=== PATIENT | female | born 1960 | race Caucasian/White ===

== ENCOUNTER 2022-01-09 23:31 | Observation (INO) | payer BC, SELFPAY ==
[2022-01-09 23:37] VITALS: BP 155/116; PULSE 146; RESP 20; TEMP 37.1; O2SAT 95
[2022-01-09 23:46] VITALS: PULSE 147
[2022-01-09] MEDS: SODIUM CHLORIDE 0.9% IV 1,000 ML 999 ML IV CONT (23:50)
--- NOTE | 2022-01-09 23:50 | ECG_ITS ---
Measurements Intervals [facility] Rate: 138 P: 114 ND: 143 QRS: -18 QRSD: 98 T: 54 QT: 291 QTc: 441 Interpretive Statements SINUS OR ECTOPIC ATRIAL TACHYCARDIA INCOMPLETE RIGHT BUNDLE BRANCH BLOCK DELAYED PRECORDIAL R/S TRANSITION NONSPECIFIC ST & T-WAVE ABNORMALITY- ANTEROLAT/HIGH LAT LEADS BASELINE ARTIFACT- II, III, AVF, V5-V6 ABNORMAL ECG NO PREVIOUS ECG AVAILABLE FOR COMPARISON Electronically Signed On 01-10-2022 7:05:04 CDT by Mathieu Peralta D.O.
[2022-01-09 23:51] VITALS: PULSE 90; RESP 21; O2SAT 95
--- NOTE | 2022-01-09 23:55 | PC.NURSE ---
Talked to Dayana in lab at 23:55 to add on D Dimer
[2022-01-10] VITALS (50 sets, daily range): BP systolic 100–154; BP diastolic 55–97; PULSE 59–134; RESP 10–25; O2SAT 94–98
--- NOTE | 2022-01-10 | ECG_ITS ---
Measurements Intervals [place] Rate: 121 P: CT: 0 QRS: -7 QRSD: 93 T: 49 QT: 317 QTc: 451 Interpretive Statements ATRIAL FIBRILLATION WITH RAPID VENTRICULAR RESPONSE INCOMPLETE RIGHT BUNDLE BRANCH BLOCK ABNORMAL ECG COMPARED TO ECG 01/09/2022 23:42:51 ATRIAL FIBRILLATION NOW PRESENT Electronically Signed On 01-10-2022 7:05:38 CDT by Mathieu Peralta D.O.
--- NOTE | 2022-01-10 | ECHO_ITS ---
Patient Info Name: Salima Soriano Age: 61 years : 1960 Gender: Female Ht: 64 in Wt: 198 lbs BSA: 2.05 m2 HR: 59 bpm BP: 118 / 68 mmHg Heart Rhythm: Sinus Rhythm Technical Quality: Fair Exam Date: 01/10/2022 10:05 AM Exam Location: [facility] Patient Status: Outpatient Admit Date: 01/10/2022 Staff Ordering Physician: Kathya Ford MD Patient Centered Care Specialist: Kya Iraheta RDCS Attending Provider: Kathya Ford MD Referring Physician: Liliana PENNINGTON; Exam Type: CA echo doppler color flow Study Info Indications - FATIGUE/A FIB Complete two-dimensional, color flow and Doppler transthoracic echocardiogram is performed. Summary 1. Complete two-dimensional, color flow and Doppler transthoracic echocardiogram is performed. 2. Left ventricular chamber dimension is normal. 3. Left ventricular systolic function is normal, estimated at 65-70%. 4. The left ventricular diastolic function is grade I diastolic dysfunction. 5. E/e' 24 is significantly elevated. 6. There is mild aortic valve regurgitation. 7. There is mild mitral valve regurgitation. 8. There is trace tricuspid valve regurgitation. 9. No pulmonary hypertension, estimated pulmonary arterial systolic pressure is 35 mmHg. Left Ventricle E/e' 24 is significantly elevated. Left ventricular chamber dimension is normal. Left ventricular systolic function is normal, estimated at 65-70%. The left ventricular diastolic function is grade I diastolic dysfunction. Right Ventricle Right ventricular systolic function is normal and with normal TAPSE 2.2 cm. Right ventricular chamber dimension is normal. Left Atria Left atrial chamber dimension is normal. Right Atria Right atrial chamber dimension is normal. Aortic Valve The aortic valve is trileaflet. There is no aortic valve stenosis. There is mild aortic valve regurgitation. Pulmonic Valve There is no pulmonic regurgitation. Mitral Valve There is no mitral valve stenosis. There is mild mitral valve regurgitation. Tricuspid Valve There is trace tricuspid valve regurgitation. No pulmonary hypertension, estimated pulmonary arterial systolic pressure is 35 mmHg. Pericardium/Pleural There is no pericardial effusion. Inferior Vena Cava Normal inferior vena cava with >50% collapse upon inspiration consistent with normal right atrial pressure, 5 mmHg. Aorta The aortic root size at the sinus of Valsalva is normal. Left Ventricular Outflow Tract Name Value Normal LVOT 2D LVOT Diameter 2.0 cm LVOT Doppler LVOT Peak Gradient 6 mmHg LVOT Mean Gradient 3 mmHg LVOT VTI 27 cm LVOT VTI/AV VTI Ratio 0.8 LVOT Stroke Volume 85 ml LVOT CO 5.0 l/min LVOT CI 2.4 l/min/m2 Pulmonic Valve Name Value Normal
[2022-01-10 00:06] LABS: Basophils Absolute Auto 0.1 K/mm3 (0.0-0.1); Basophils Percent Auto 0.7 % (0.2-1.2); Eosinophils Absolute Auto 0.6 K/mm3 (0-0.3); Eosinophils Percent Auto 4.3 % (0-4.4); Hematocrit 48.9 % (37.0-47.0); Hemoglobin 16.4 g/dL (12.0-15.0); Immature Granulocyte Absolute 0.05 K/mm3 (0.00-0.031); Immature Granulocyte Percent A 0.4 % (0-0.5); Lymphocytes Percent Auto 26.1 % (18.3-44.2); Mean Corpuscular HGB Conc 33.5 g/dl (32-36); Mean Corpuscular Hemoglobin 30.6 pg (26-34); Mean Corpuscular Volume 91.2 fl (80-100); Mean Platelet Volume 10.3 fl (7.4-10.4); Monocytes Absolute Auto 1.3 K/mm3 (0.1-0.6); Monocytes Percent Auto 9.4 % (2.6-8.5); Neutrophils Absolute Auto 7.9 K/mm3 (1.3-6.7); Neutrophils Percent Auto 59.1 % (45.5-73.1); Platelet Count Result 393 k/mm3 (150-375); Red Blood Count 5.36 M/mm3 (4.2-5.4); Red Cell Distribution Width 13.3 % (11.5-14.5); White Blood Count 13.4 K/mm3 (4.5-10.0)
[2022-01-10] MEDS: dilTIAZem HCl INJ 25 MG/5 ML VIAL 10 MG IV PUSH (00:14)
[2022-01-10 00:17] LABS: Prothrombin Time 12.4 Seconds (11.1-14.7)
[2022-01-10 00:18] LABS: Partial Thromboplastin Time 29.2 SECONDS (22.3-36.8)
[2022-01-10 00:44] LABS: Alanine Aminotransferase 36 U/L (6-35); Albumin Level 4.8 g/dL (3.5-5.1); Alkaline Phosphatase 103 U/L (38-126); Anion Gap 16 mmol/L (8-16); Aspartate Amino Transferase 35 U/L (14-36); Bilirubin,Total 0.3 mg/dL (0.2-1.3); Blood Urea Nitrogen 14 mg/dL (7-17); Calcium 9.3 mg/dL (8.4-10.2); Carbon Dioxide 24 mmol/L (22-30); Chloride 100 mmol/L (98-107); Estimated CRCL calculation 81 ml/min; Estimated Glomerular Filt Rate > 60; Glucose 80 mg/dL (65-110); Potassium 3.5 mmol/L (3.4-5.0); Sodium 140 mmol/L (137-145)
[2022-01-10] MEDS: dilTIAZem 100 MG/100 ML 100 MG/100 ML BAG IV CONT (00:46)
--- NOTE | 2022-01-10 01:05 | ED.ARRPALP ---
HPI - Arrhythmia/Palpitations General Chief Complaint: Arrhythmia/Palpitations Stated Complaint: Irregular HR Time Seen by Provider: 01/09/22 23:43 History of Present Illness HPI narrative: 61-year-old female history of possible paroxysmal atrial fibrillation presented to the emergency department for evaluation of rapid heart rate since about 930 this evening. Patient states she felt that she slipped into a rapid heart rate but waited approximately 2 hours to come and because she expected to resolve. Patient states she did have issues with this previously and had a Holter monitor which showed no acute abnormalities. Patient states the only change today was that she did have some fast food this evening and did have some ice tea. Patient states this is not unusual amount of caffeine for her. Review of Systems Review of Systems: CONSTITUTIONAL: Denies fever, chills, or sweats. EYES: Denies visual changes, redness, or discharge. ENT: Denies rhinorrhea, congestion, sore throat, or otalgia. CARDIOVASCULAR: See HPI RESPIRATORY: Denies cough or dyspnea. GASTROINTESTINAL: Denies abdominal pain, nausea, vomiting, or diarrhea. GENITOURINARY: Denies dysuria or hematuria. SKIN: Denies rash or itching. MUSCULOSKELETAL: Denies back pain, joint pain, or myalgia. NEUROLOGIC: Denies headache, numbness, or weakness. Exam Narrative: APPEARANCE: Well appearing, no pain, no distress, well-nourished. HEAD: normocephalic, atraumatic. EYES: PERRLA/EOMI, conjunctivae clear. NOSE: Normal no drainage EARS:TMS clear with good light reflex. THROAT: Pharynx clear, no exudate. NECK: Supple. No adenopathy, no masses. RESPIRATORY: Airway patent, respirations nonlabored. Clear to auscultation bilaterally, no rales, rhonchi, wheezing. CARDIOVASCULAR: A. fib with RVR ABDOMINAL: Soft, nontender, nondistended, normal bowel sounds MUSCULOSKELETAL: Moves all extremities. Strength/ROM intact, No edema, No calf tenderness. NEURO: Alert. Cranial nerves II through XII intact. Grossly intact SKIN: Warm, dry. Normal Color Course Course Emergency Course: Patient's EKG was A. fib with RVR. Patient was treated with Cardizem and did have an improvement of her heart rate. Patient was also started on a Cardizem drip. After the Cardizem drip patient's heart rate was controlled. Patient's D-dimer was mildly elevated but age-adjusted this is still within the normal limit. Case was discussed with the hospitalist and patient was accepted to the IMU. Vital Signs Vital signs: Vital Signs Temperature 98.7 F 01/09/22 23:37 Pulse Rate 146 H 01/09/22 23:37 Respiratory Rate 20 01/09/22 23:37 Blood Pressure 155/116 H 01/09/22 23:37 Pulse Oximetry 95 01/09/22 23:37 Oxygen Delivery Room Air 01/09/22 23:37 Temperature 98.7 F 01/09/22 23:37 Pulse Rate 114 H 01/10/22 00:46 Respiratory Rate 23 H 01/10/22 00:17 Blood Pressure 130/80 01/10/22 00:46 Pulse Oximetry 95 01/10/22 00:17 Oxygen Delivery Room Air 01/09/22 23:37 MDM - Arrhythmia/Palpitations Lab Data Attestation: I reviewed the patient's lab results. Result diagrams: 01/09/22 23:48 01/09/22 23:48 Labs: Lab Results 01/09/22 01/09/22 01/09/22 Range/Units 23:48 23:48 23:48 WBC 13.4 H (4.5-10.0) K/mm3 RBC 5.36 (4.2-5.4) M/mm3 Hgb 16.4 H (12.0-15.0) g/dL Hct 48.9 H (37.0-47.0) % MCV 91.2 (80-100) fl MCH 30.6 (26-34) pg MCHC 33.5 (32-36) g/dl RDW 13.3 (11.5-14.5) % Plt Count 393 H (150-375) k/mm3 MPV 10.3 (7.4-10.4) fl Immature Gran % (Auto) 0.4 (0-0.5) % Neut % (Auto) 59.1 (45.5-73.1) % Lymph % (Auto) 26.1 (18.3-44.2) % Maury % (Auto) 9.4 H (2.6-8.5) % Eos % (Auto) 4.3 (0-4.4) % Baso % (Auto) 0.7 (0.2-1.2) % Lymph # (Auto) 3.50 H (0.9-3.2) K/mm3 Maury # (Auto) 1.3 H (0.1-0.6) K/mm3 Eos # (Auto) 0.6 H (0-0.3) K/mm3 Baso # (Auto) 0.1 (0.0-0.1) K/mm3 Abs
--- NOTE | 2022-01-10 01:07 | PM.IMHP ---
H&P: HPI History of Present Illness Date/Time: 01/10/22 01:07 Meds Vital Signs Vital Signs - 24 hr 01/09/22 23:37 01/09/22 23:46 01/09/22 23:51 Temperature 98.7 F Pulse Rate 146 H 147 H 90 Respiratory Rate 20 21 H Blood Pressure 155/116 H Pulse Oximetry 95 95 Oxygen Delivery Room Air 01/10/22 00:46 01/10/22 00:00 01/10/22 00:16 Temperature Pulse Rate 114 H 134 H 97 Respiratory Rate 25 H 23 H Blood Pressure 130/80 132/97 H Pulse Oximetry 94 Oxygen Delivery 01/10/22 00:17 Temperature Pulse Rate 102 H Respiratory Rate 23 H Blood Pressure Pulse Oximetry 95 Oxygen Delivery H&P: Results Labs Labs: Short CBC 01/09/22 Range/Units 23:48 WBC 13.4 H (4.5-10.0) K/mm3 Hgb 16.4 H (12.0-15.0) g/dL Hct 48.9 H (37.0-47.0) % Plt Count 393 H (150-375) k/mm3 BMP 01/09/22 23:48 Sodium 140 Potassium 3.5 Chloride 100 Carbon Dioxide 24 BUN 14 Creatinine 0.70 Glucose 80 Calcium 9.3 Liver Function 01/09/22 Range/Units 23:48 Total Bilirubin 0.3 (0.2-1.3) mg/dL AST 35 (14-36) U/L ALT 36 H (6-35) U/L Alkaline Phosphatase 103 (38-126) U/L Albumin 4.8 (3.5-5.1) g/dL
--- NOTE | 2022-01-10 01:45 | ECG_ITS ---
Measurements Intervals [place] Rate: 68 P: 67 IN: 255 QRS: -1 QRSD: 98 T: 19 QT: 400 QTc: 426 Interpretive Statements SINUS RHYTHM WITH FIRST DEGREE AV BLOCK INCOMPLETE RIGHT BUNDLE BRANCH BLOCK ABNORMAL ECG COMPARED TO ECG 01/10/2022 00:08:39 SINUS RHYTHM NOW PRESENT FIRST DEGREE AV BLOCK NOW PRESENT Electronically Signed On 01-10-2022 7:06:10 CDT by Mathieu Peralta D.O.
[2022-01-10 02:17] LABS: SARS-CoV-2 RNA PCR Negative
[2022-01-10] MEDS: METOPROLOL SUCCINATE EXT REL 50 MG TABCR PO (02:46)
--- NOTE | 2022-01-10 04:08 | PM.IMHP ---
H&P: HPI History of Present Illness Date/Time: 01/10/22 04:08 Chief Complaint: jaw pain Narrative: This is a 61-year-old female with past medical history significant for hypertension, COPD/ emphysema, patient Prieb sense to the emergency room due to neck angio pain that started in the evening along with fluttering sensation of her chest and lightheadedness no syncope or presyncope, no cough, no sputum production, no fevers, no rigors no chills, has had some ankle swelling, feeling very fatigued over the course of the last 2 weeks denies any chest pain, no PND, no orthopnea. in emergency room patient was found to have atrial fibrillation with rapid ventricular response placed on Cardizem drip later on patient converted to sinus rhythm she was given 50 mg of metoprolol extended release p.o. and was given the option to go home however she is still want to stay for observation. Preliminary workup was significant for WBC 92004, TSH of 5.650, hemoglobin of 16 hematocrit of 48. Patient states that she has been in her usual state of health up until this point. Review of Systems Review of Systems: Jaw pain, fluttering of the chest, fatigue. Constitutional: Constitutional: Denies chills, Reports fatigue, Denies fever(s), Denies malaise, Denies night sweats, Denies poor appetite and Denies weakness Eyes: Eyes: Denies change in vision ENT: Denies dysphagia, Denies vertigo, Denies dizziness and Denies odynophagia Cardiovascular: Cardiovascular: Reports palpitations, Denies orthopnea and Denies paroxysmal nocturnal dyspnea Respiratory: Respiratory: Denies cough, Denies pain on inspiration and Denies dyspnea on exertion Gastrointestinal: Gastrointestinal: Denies abdominal pain, Denies dyspepsia, Denies heartburn, Denies diarrhea, Denies nausea and Denies vomiting Genitourinary: Genitourinary: Denies dysuria Musculoskeletal: Musculoskeletal: Denies myalgias and Denies muscle weakness Integumentary/Breasts: Skin/Breast: Denies rash Neurologic: Denies vertigo, Denies dizziness, Denies focal weakness and Denies Sensory deficit (Neuro) Psychiatric: Psychiatric: Reports no additional psychiatric complaints and Reports as per HPI Endocrine: Endocrine: Denies cold intolerance, Denies flushing, Denies heat intolerance, Denies polyphagia, Denies polydipsia and Denies palpitations Hematologic/Lymphatic: Hematologic/Lymphatic: Reports no additional hematologic/lymphatic complaints and Reports as per HPI Allergic/Immunologic: Allergic/Immunologic: Reports no additional allergic/immunologic complaints and Reports as per HPI Meds Vital Signs Vital Signs - 24 hr 01/09/22 23:37 01/09/22 23:46 01/09/22 23:51 Temperature 98.7 F Pulse Rate 146 H 147 H 90 Respiratory Rate 20 21 H Blood Pressure 155/116 H Pulse Oximetry 95 95 Oxygen Delivery Room Air 01/10/22 00:46 01/10/22 00:00 01/10/22 00:16 Temperature Pulse Rate 114 H 134 H 97 Respiratory Rate 25 H 23 H Blood Pressure 130/80 132/97 H Pulse Oximetry 94 Oxygen Delivery 01/10/22 00:17 01/10/22 00:30 01/10/22 00:31 Temperature Pulse Rate 102 H 109 H 109 H Respiratory Rate 23 H 22 H 24 H Blood Pressure 154/84 H Pulse Oximetry 95 95 96 Oxygen Delivery 01/10/22 00:45 01/10/22 01:00 01/10/22 01:19 Temperature Pulse Rate 116 H 118 H 106 H Respiratory Rate 19 21 H Blood Pressure Pulse Oximetry 95 97 96 Oxygen Delivery 01/10/22 01:31 01/10/22 01:33 01/10/22 01:45 Temperature Pulse Rate 105 H 98 71 Respiratory Rate 15 22 H 24 H Blood Pressure Pulse Oximetry 97 95 95 Oxygen Delivery 01/10/22 01:46 01/10/22 02:00 01/10/22 02:01 Temperature Pulse Rate 70 71 73 Respiratory Rate 25 H 22 H 19 Blood Pressure 137/82 115/72 Pulse Oximetry 95 94 96 Oxygen Delivery 01/10/22 02:15 01/10/22 02:16 01/10/22 02:46 Temperature Pulse Rate 70 73 73 Respiratory Rate 24 H 23 H Blood Pressure 122/69 Pulse Oximetry 96
--- NOTE | 2022-01-10 08:15 | PC.NURSE ---
Spoke to hospitalist about pt wished to be discharged. Dr. Ricardo said someone would need to come and evaluate her for discharge. He said provider should be to see her around 12:00. Pt informed. Pt understands course of treatment.
--- NOTE | 2022-01-10 09:21 | PM.DS ---
DS: Admitting Diagnosis Discharge Date 01/10/22921 Admitting Diagnosis Atrial fibrillation RVR? History of hypothyroidism?Abnormal TSH DS: Discharge Diagnosis Discharge Diagnosis (1) Atrial fibrillation: Qualifiers: Atrial fibrillation type: paroxysmal Qualified Code(s): I48.0 - Paroxysmal atrial fibrillation Code(s): I48.91 - Unspecified atrial fibrillation Status: Acute (2) Abnormal TSH: Code(s): R79.89 - Other specified abnormal findings of blood chemistry Status: Acute DS: Summary Hospital Course Reason for hospitalization: jaw pain Hospital Course: Salima Soriano is a 61-year-old female with hypertension, COPD/ emphysema, hyperlipidemia and hypothyroidism. She presented to the emergency room due to neck and jaw pain. The pain started in the evening and as associated with a fluttering sensation in her chest and lightheadedness. She denied syncope or presyncope, no cough, no sputum, no fevers, no rigors or chills. She does endorse some ankle swelling and feeling very fatigued over the course of the last 2 weeks. She denies chest pain, PND, or orthopnea. In the emergency room, patient was found to have atrial fibrillation with rapid ventricular response 147 bpm. She was treated with bolus diltiazem 10 mg IV x1 and started on a diltiazem drip. She converted to sinus rhythm on 01/10/22 at 0145. Cardizem was stopped and she was given 50 mg of metoprolol extended release p.o.x1. She was given the option to go home however she was concerned about leaving and wanted to pursue further evaluation by Cardiology. She does endorse seeing a Core Sticker through [facility]. She had an event monitor recently that did not show arrhythmia. Her preliminary workup? was significant for WBC 11018, TSH of 5.650, hemoglobin of 16 and hematocrit of 48.? Patient states that she has been in her usual state of health up until this point. The patient was held in the emergency room until a telemetry bed was available. She did report feeling well at 0900 and decided to go home to follow up with her Core Sticker. She was educated extensively regarding medications and side effects. CHADSVASc score was 2, low moderate risk for stroke. She was treated with therapeutic lovenox in the ED and started on Eliquis 5 mg BID at discharge. The patient was counseled on the risks and benefits of anticoagulation ans was agreeable to starting medication. She was continued on Metoprolol XL 50 mg daily. She remained in sinus rhythm at discharge. Her TSH was noted to be elevated 5.6, however, free T4 was not obtained during her hospital stay, therefore no adjustments were made in her medications. She was counseled to follow up with her PCP. Echocardiogram was obtained and showed normal LV systolic function, EF 65%, mild AR, mild MR, and trace TR. no pulmonary hypertension was noted. Status at Discharge Cognitive/behavioral status at discharge: Alert and oriented x4, pleasant Functional status at discharge: independent ambulation Overall status at discharge: patient is back to baseline Time Spent with Patient Time attestation: Total time spent providing and/or coordinating discharge services: Time spent: Greater than 30 minutes Exam Narrative: General: No acute distress.? Well-developed and well-groomed?adult female. Mental Status/Psych: Awake, alert and oriented to person and place with clear speech. Neutral mood and affect. Pleasant and cooperative. Skin: Skin fair, warm, dry and intact without rashes or lesions. No open wounds. Good turgor.? HEENT: Normocephalic. Conjunctivae are clear. Sclera is non-icteric. EOM intact. PERRL. Grossly normal hearing. Oral mucosa pink and moist. Tongue midline. Oropharynx within normal limits. Neck: Supple. Thyroid without nodularity. Trachea midline. No JVD. Heart: S1 and S2 regular rate and rhythm. No murmurs, gallops, or rubs auscultated. Chest: Respirations even and unlabored. Lung sounds are clear to auscultation i
== END 2022-01-10 12:00 | disposition home or self-care (01) ==
LOC: ANHED 01-10 01:02 → ANH3MEDSUR 01-10 03:24 → ANH2MED 01-10 09:56 → ANH3MEDSUR 01-10 12:29
PROVIDERS: Admitting Provider Internal Medicine; Emergency Provider Emergency Medicine; Visit Provider Internal Medicine
DX: I48.91 Unspecified atrial fibrillation (principal); R79.89 Other specified abnormal findings of blood chemistry; E03.9 Hypothyroidism, unspecified; R00.2 Palpitations; R94.31 Abnormal electrocardiogram [ECG] [EKG]; I45.10 Unspecified right bundle-branch block; I10 Essential (primary) hypertension; I08.0 Rheumatic disorders of both mitral and aortic valves; J43.9 Emphysema, unspecified; Z20.822 Contact with and (suspected) exposure to COVID-19; M54.2 Cervicalgia; R68.84 Jaw pain; R42 Dizziness and giddiness; M25.473 Effusion, unspecified ankle; R53.83 Other fatigue; E78.5 Hyperlipidemia, unspecified
CPT/HCPCS: 36415; 80053; 83735; 84443; 85025; 85380; 85610; 85730; 93005; 93306; 96365; 96366; 99285; A9270; G0378; J7030; U0003; U0005

== ENCOUNTER → 2023-03-05 15:02 | Outpatient (CLI) | payer BC, SELFPAY ==
--- NOTE | ~2023-03-05 | XR_ITS ---
[id number] 03/05/2023 15:34 Indication: Right knee pain Procedure: 2 views of the right knee Comparison: No prior studies for comparison. Findings: There is moderate tricompartment osteoarthritis. No fracture or traumatic subluxation. Smal l joint effusion. No foreign bodies. Impression: 1: Moderate tricompartment osteoarthritis. Reviewed, dictated and finalized at location L. ENGINEER Impression: 1: Moderate tricompartment osteoarthritis.
--- NOTE | ~2023-03-05 | XR_ITS ---
[id number] 03/05/2023 15:34 Indication: Left knee pain Procedure: 2 views left knee Comparison: No prior studies for comparison. Findings: There is mild tricompartment osteoarthritis. No fracture or traumatic subluxation. No joint effusion. No foreign bodies. Impression: 1: Mild tricompartment osteoarthritis. Reviewed, dictated and finalized at location L. FIC SIGNAL MECHANIC Impression: 1: Mild tricompartment osteoarthritis.
== END ==
DX: M17.0 Bilateral primary osteoarthritis of knee (principal)
CPT/HCPCS: 73560

== ENCOUNTER → 2024-03-07 15:59 | Outpatient (REF) | payer BC, SELFPAY | LOC: ANHLAB 15:59 | PROVIDERS: Visit Provider Plastic Surgery | DX: L72.0 Epidermal cyst (principal) | CPT/HCPCS: 88305 ==

== ENCOUNTER 2024-09-22 14:32 | Outpatient (CLI) | payer BC, SELFPAY ==
--- NOTE | ~2024-09-22 | MR_ITS ---
MRI of the cervical spine Clinical History: Pain Technique: Axial T2-weighted and gradient images, and sagittal T1-weighted, T2-weighted, and STIR stanislaw ges were acquired. Findings: There is no fracture or subluxation of the cervical spine. Vertebral bodies maintain normal height and alignment. No bone marrow signal abnormality seen. At C2-C3, there is no disc bulge or herniation. No spinal canal stenosis, cord compression, or neural foraminal narrowing. At C3-C4, there is disc osteophyte complex with mild canal stenosis and minimal flattening the ventra l cord. Neural foramina are probably preserved. At C4-C5, there is disc osteophyte complex with mild canal stenosis but no tika cord compression. Ne ural foramina appear preserved. At C5-C6, there is disc osteophyte complex with mild to moderate canal stenosis and minimal flattenin g the ventral cord. There is probable bilateral neural foraminal narrowing. At C6-C7, there is disc osteophyte complex without canal stenosis or cord compression. Bilateral neur al foramina are preserved. No abnormal signal seen in the spinal cord. Paravertebral soft tissues are unremarkable. Impression: Moderate degenerative spondylosis, as above. Reviewed, dictated and finalized at location . Impression: Moderate degenerative spondylosis, as above.
== END 2024-09-22 14:33 | disposition home or self-care (01) ==
LOC: GOSHIMG 14:32
PROVIDERS: PCP Otolaryngology
DX: M47.812 Spondylosis without myelopathy or radiculopathy, cervical region (principal)
CPT/HCPCS: 72141

== ENCOUNTER 2024-11-21 16:01 | Outpatient (CLI) | payer BC, SELFPAY ==
--- NOTE | ~2024-11-21 | XR_ITS ---
EXAMINATION: XR shoulder LT min 2V, 11/21/2024 16:14 CDT HISTORY: Bilateral shoulder pain COMPARISON: No comparisons available. Findings: No acute fracture or malalignment. No significant degenerative changes. Soft tissues unremarkable. Impression: No acute fracture or malalignment. Reviewed, dictated and finalized at location A. Impression: No acute fracture or malalignment.
--- NOTE | ~2024-11-21 | XR_ITS ---
EXAMINATION: XR shoulder RT min 2V, 11/21/2024 16:14 CDT HISTORY: Bilateral shoulder pain COMPARISON: No comparisons available. Findings: No acute fracture or malalignment. No significant degenerative changes. Soft tissues unremarkable. Impression: No acute fracture or malalignment. Reviewed, dictated and finalized at location A. Impression: No acute fracture or malalignment.
== END 2024-11-21 16:02 | disposition home or self-care (01) ==
LOC: MICIMG 16:03
PROVIDERS: Visit Provider Nurse Practitioner Family
DX: M25.511 Pain in right shoulder (principal); M25.512 Pain in left shoulder
CPT/HCPCS: 73030